=== PATIENT | male | born 1935 | race Caucasian/White ===

== ENCOUNTER 2017-01-14 08:23 | Emergency (ER) | payer MEDICARE ==
[2017-01-14 08:35] VITALS: BP 112/64
--- NOTE | 2017-01-14 10:41 | UC ---
Throat Pain/Nasal Shay HPI - HPI Summary HPI Summary: 8 weeks of cough and cold sx----now for over 2 weeks has had sinus and ear pain and congestion left maxillary sinus area particularly tender - History of Current Complaint Chief Complaint: UCRespiratory Stated Complaint: URI Time Seen by Provider: 01/14/17 09:59 Hx Obtained From: Patient Onset/Duration: Gradual Onset, Lasting Weeks - 8, Still Present, Worse Since - past 2 weeks Severity: Moderate Pain Intensity: 6 Pain Scale Used: 0-10 Numeric Cough: Nonproductive Associated Signs & Symptoms: Positive: Sinus Discomfort, Nasal Discharge - Allergies/Home Medications Allergies/Adverse Reactions: Allergies Allergy/AdvReac Type Severity Reaction Status Date / Time Hydroxyzine Allergy Unknown Verified 01/14/17 08:36 Reaction Details Home Medications: Home Medications Cholecalciferol [Vitamin D] 1 DAILY 01/14/17 [History] PMH/Surg Hx/FS Hx/Imm Hx Previously Healthy: No Endocrine History Of: Denies: Diabetes - BOARDERLINE, Thyroid Disease Cardiovascular History Of: Reports: Cardiac Disorders - CHF, Hypertension - ON DAILY MEDS, Pacemaker/ICD - [employer], Congestive Heart Failure Respiratory History Of: Reports: Pulmonary Embolism Denies: Asthma GI/ History Of: Denies: Ulcer, Renal Disease - Surgical History Surgical History: Yes Surgery Procedure, Year, and Place: 09/23/1994 BACK-BONE SPUR [facility]. 2002 LUMBAR HERNIATED DISK [place]. 2005 PACEMAKER/DEFIB [place]. 2011 LEFT KNEE REPLACEMENT [place]. 08/2013, RIGHT KNEE REPLACED, [facility]. 12/2013, Single chamber ICD generator changed, (Brand) gallbladder - Family History Known Family History: Positive: None Family History: no reported cardiovascular issues in family lineage - Social History Occupation: Retired Lives: With Family Alcohol Use: Daily Alcohol Amount: 1 drink per day Substance Use Type: None Smoking Status (MU): Former Smoker Type: Cigarettes, Cigars Amount Used/How Often: 1-2 CIGARS A DAY Length of Time of Smoking/Using Tobacco: 50 YEARS Have You Smoked in the Last Year: No When Did the Patient Quit Smoking/Using Tobacco: 1999 - Immunization History Most Recent Influenza Vaccination: [id number] season Most Recent Tetanus Shot: 2007 Most Recent Pneumonia Vaccination: 2010 Review of Systems Constitutional: Negative Skin: Negative Eyes: Drainage ENT: Negative, Sore Throat, Ear Ache, Nasal Discharge Respiratory: Cough Cardiovascular: Negative Gastrointestinal: Negative Genitourinary: Negative Motor: Negative Neurovascular: Negative Musculoskeletal: Negative Neurological: Headache - maxillary sinus on right Psychological: Negative All Other Systems Reviewed And Are Negative: Yes Physical Exam Triage Information Reviewed: Yes Appearance: Well-Appearing, No Pain Distress, Well-Nourished Vital Signs: Initial Vital Signs Temp 97.9 F 01/14/17 08:25 Pulse 59 01/14/17 08:25 Resp 18 01/14/17 08:25 BP 112/64 01/14/17 08:25 Pulse Ox 98 01/14/17 08:25 Vital Signs Reviewed: Yes Eye Exam: Normal Eyes: Positive: Conjunctiva Clear ENT Exam: Normal ENT: Positive: Normal ENT inspection, Hearing grossly normal, Pharynx normal, TMs normal. Negative: Nasal congestion, Nasal drainage, Tonsillar swelling, Tonsillar exudate, Trismus, Muffled/hoarse voice Dental Exam: Normal Neck exam: Normal Neck: Positive: Supple, Nontender, No Lymphadenopathy Respiratory Exam: Normal Respiratory: Positive: Chest non-tender, Lungs clear, Normal breath sounds, No respiratory distress, No accessory muscle use Cardiovascular Exam: Normal Cardiovascular: Positive: RRR, No Murmur, Pulses Normal Musculoskeletal Exam: Normal Musculoskeletal: Positive: Strength Intact, ROM Intact, No Edema Neurological Exam: Normal Neurological: Positive: Alert, Muscle Tone Normal Psychological Exam: Normal Skin Exam: Normal Throat Pain/Nasal Course/Dx - Course Assessment/Plan: flonase, augmentin, mucinex increase fluids follow with pcp - Differential Dx/Diagnosis Differential Diagnosis/HQI/PQRI: Influenza, Pharyngitis, Sinusitis, URI Provider Diagnoses: Acute rhinosinusitis Discharge - Discharge Plan Condition: Stable Disposition: HOME Prescriptions: Amoxicillin/Clavulanate TAB* [Augmentin TAB 875*] 875 mg PO BID #20 tab Patient Education Materials: Upper Respiratory Infection (ED), Rhinosinusitis ( ED) Referrals: Ame Sims MD [Primary Care Provider] - 2 Weeks
== END 2017-01-14 10:19 | disposition home or self-care (01) ==
LOC: UCEAST 08:23
DX: J01.90 Acute sinusitis, unspecified (principal); I11.0 Hypertensive heart disease with heart failure; I50.9 Heart failure, unspecified; Z86.711 Personal history of pulmonary embolism; Z87.891 Personal history of nicotine dependence; I26.99 Other pulmonary embolism without acute cor pulmonale
CPT/HCPCS: 99212; G0463

== ENCOUNTER 2017-05-26 10:44 | Day surgery (SDC) | payer MEDICARE ==
[~2017-05-26 10:44] MED LIST: Buffered Lidocaine 0.9% SYRIN* 5 ML/SYR SYRINGE INTRADERM ONE; Midazolam* 1 MG/ML 2 ML VIAL (2 MG) ONE; fentaNYL* 50 MCG/ML 2 ML VIAL (100 MCG VIAL) ONE
[2017-05-26] MEDS ORDERED: ceFAZolin 2 GM PREMIX (*) 50 ML BAG (BBraun bag) IVPB ONE (10:52)
[2017-05-26] MEDS ORDERED: Lidocaine 1.5% EPI 1:200,000* 30 ML SDV ONE (11:49)
[2017-05-26] MEDS ORDERED: Bupivacaine 0.25% EPI 200,000* 30 ML SDV ONE (11:55)
[2017-05-26 13:32] VITALS: BP 122/71
== END 2017-05-26 13:44 | disposition home or self-care (01) ==
LOC: OREAST 10:44
PROVIDERS: ATTEND Plastic Surgery
DX: D03.4 Melanoma in situ of scalp and neck (principal); Z95.810 Presence of automatic (implantable) cardiac defibrillator; I47.2 Ventricular tachycardia; I42.9 Cardiomyopathy, unspecified; I10 Essential (primary) hypertension; Z87.891 Personal history of nicotine dependence
CPT/HCPCS: 88305; 88341; 88342; J0690; J2250; J3010